=== PATIENT | male | born 1970 | race Caucasian/White ===

== ENCOUNTER 2022-07-06 11:03 | Emergency (ER) | payer OTHER, SELFPAY ==
[2022-07-06 11:14] VITALS: BP 136/87; PULSE 69; RESP 16; TEMP 37.1; O2SAT 98
--- NOTE | 2022-07-06 11:28 | PC.NURSE ---
eye exam set up at bedside.
--- NOTE | 2022-07-06 11:41 | ED.EYEPROB ---
HPI - Eye Problem General Chief complaint: Eye Problems Stated complaint: right eye pain Time Seen by Provider: 07/06/22 11:20 Source: patient Mode of arrival: ambulatory Limitations: no limitations History of Present Illness HPI Narrative: Mr. Bae is a 51-year-old male patient presenting to clinic today with complaints of right eye pain. He reports that he poked himself in the eye with a pen and topped yesterday when he was holding a pen in his right hand and reading a small piece of paper and had tried to move the clipboard and pain closer to his face so he could read he accidentally poked himself in the eye. He reports that the pain is better today than what it was yesterday but still replace the pain a /. States that his vision is blurry and his eye has been watering. He denies any loss of vision. Related Data Home Medications Medication Instructions Recorded Confirmed amlodipine 10 mg tablet mg 07/06/22 amlodipine 5 mg tablet mg 07/06/22 atorvastatin 20 mg tablet mg 07/06/22 dulaglutide 1.5 mg/0.5 mL mg subcut 07/06/22 subcutaneous pen injector (Trulicity) furosemide 20 mg tablet mg 07/06/22 hydrochlorothiazide 25 mg tablet mg 07/06/22 hydroxyzine pamoate 25 mg capsule mg 07/06/22 lisinopril 40 mg tablet mg 07/06/22 metformin 500 mg tablet mg 07/06/22 Allergies Allergy/AdvReac Type Severity Reaction Status Date / Time No Known Allergies Allergy Verified 07/06/22 11:17 Review of Systems Review of Systems: Pertinent positives per HPI. Patient denies any fever, chills, rash, headache, dizziness, cough, runny nose, sore throat, shortness of breath, chest pain, palpitations, nausea, vomiting, diarrhea, constipation, abdominal pain, or any urinary issues. PMFSH Comments At the time of my signature, I reviewed and agree with the nursing past medical, surgical, social, and family history. There is no relevant family history pertinent to the patient complaint. Exam Narrative: General: Well-developed, well nourished, in no apparent distress Head: Normocephalic, atraumatic Eyes: Pupils equally round and reactive to light bilaterally, EOM intact, left sclera and conjunctive clear, right sclera and conjunctiva red with watery discharge, lids normal, Wood's lamp exam performed and patient has a small corneal abrasion to the right lateral eye at of the visual field. Ears: TMs intact and clear, ear canals clear, no drainage, grossly hearing normal. Nose: Nares patent, no discharge, no inflammation, no sinus tenderness. Mouth: Oropharynx without lesions or masses, good dentition, MMM. Neck: Supple, trachea midline, no enlargement of anterior or posterior cervical nodes, no thyroid masses or goiter palpable. Cardio: Regular rate and rhythm, s1 and s2 normal, no murmur appreciated. Resp: Clear to auscultation bilaterally anteriorly and posteriorly, no rhonchi, rales, wheezing or rubs Course Course Emergency Course: Portions of this record may have been created with voice recognition software. Level of Care: Express Care Visit Vital Signs Vital signs: Vital Signs Temperature 37.1 C 07/06/22 11:14 Pulse Rate 69 07/06/22 11:14 Respiratory Rate 16 07/06/22 11:14 Blood Pressure 136/87 07/06/22 11:14 Pulse Oximetry 98 07/06/22 11:14 Oxygen Delivery Room Air 07/06/22 11:14 Temperature 37.1 C 07/06/22 11:14 Pulse Rate 69 07/06/22 11:14 Respiratory Rate 16 07/06/22 11:14 Blood Pressure 136/87 07/06/22 11:14 Pulse Oximetry 98 07/06/22 11:14 Oxygen Delivery Room Air 07/06/22 11:14 Vital signs reviewed MDM - Eye Problem MDM Narrative Medical decision making narrative: At the time of visit patient is resting comfortably on the exam table. He has a small corneal abrasion to the right lateral eye. I will send him in a prescription emycin ointment to place in his eye. Supportive measures were discussed with the patient he voiced understanding o
== END 2022-07-06 11:52 | disposition home or self-care (01) ==
PROVIDERS: Emergency Provider Nurse Practitioner Family
DX: S05.01XA Injury of conjunctiva and corneal abrasion without foreign body, right eye, initial encounter (principal); W22.8XXA Striking against or struck by other objects, initial encounter; I11.0 Hypertensive heart disease with heart failure; I50.9 Heart failure, unspecified; E78.00 Pure hypercholesterolemia, unspecified; E11.9 Type 2 diabetes mellitus without complications
CPT/HCPCS: 99203; A9270; G0463